=== PATIENT | female | born 1945 | race Caucasian/White ===

== ENCOUNTER → 2018-03-27 | Day surgery (SDC) | payer OTHER ==
[~2018-03-27] MED LIST: DIAZEPAM5 MG PO; FENTANYL CITRATE/PF 100MCG/2 ML INJ ONE; GABAPENTIN300 MG PO; LEVOCETIRIZINE D5 MG PO; LEVOTHYROXINE175 MCG PO; LITHIUM CARBON450 MG PO; LOVENOX60 MG/0.6 SC; LUNESTA2 MG PO; MIDAZOLAM HCL 2 MG/2 ML VIAL ONE; NEXIUM40 MG PO; OR PHACO EYE KIT ONE; PREOP PHACO EYE KIT ONE; SEROQUEL400 MG PO; SINGULAIR10 MG PO; TOPAMAX100 MG PO; TRINTELLIX PO; WARFARIN SODIUM10 MG PO
--- OUTSIDE RECORDS SUMMARY | 2018-03-27 08:54 | XMS REPORT ---
Author Author Juan José Hein [facility] eClinicalWorks Address Unknown Phone Unavailable Care Team Providers Care Human Resources Safety Manager Name Role Phone Juan José Hein CP Unavailable Allergies, Adverse Reactions, Alerts Substance Reaction Event Type penicillin Info Not Available Drug Allergy Keflex Info Not Available Drug Allergy Problems Problem Type Condition Code Onset Dates Condition Status Assessment Shortness of breath R06.02 Active Problem Angina NOS 413.9 Active Assessment Abnormal electrocardiogram R94.31 Active Assessment Encounter for preprocedural cardiovascular examination Z01.810 Active Assessment Fatigue, unspecified type R53.83 Active Problem Encounter for preprocedural cardiovascular examination Z01.810 Active Problem Fatigue, unspecified type R53.83 Active Problem Bradycardia R00.1 Active Problem Benign hypertension 401.1 Active Problem Shortness of breath 786.05 Active Problem Shortness of breath R06.02 Active Problem Abnormal electrocardiogram R94.31 Active Medications Medication Code System Code Instructions Start Date End Date Status Dosage lithium [facility] 98613899602 450 mg orally daily Active 1 tab(s) warfarin [facility] 52104294487 5 mg orally once a day Active 1 tab(s) eszopiclone [facility] 12649637961 1 mg orally once a day (at bedtime) Active 1 tab(s) Tylenol with Codeine #3 [facility] 09642254141 300 mg-30 mg orally bid prn Active 1 tab(s) Trintellix [facility] 61504593729 10 mg orally qhs Active 1 tab(s) gabapentin [facility] 21431028980 600 mg orally qhs Active 1 tab(s) levothyroxine [facility] 86578258468 175 mcg (0.175 mg) orally once a day Active 1 tab(s) quetiapine [facility] 64545662213 400 mg orally qhs Active 1 tab(s) Valium ND 81604087212 5 mg orally prn Active 1 tab(s) levocetirizine ND 20672813648 5 mg orally once a day (in the evening) Active 1 tab(s) Topamax NDC 48178115721 50 mg orally as directed Active 1 tab(s) montelukast [facility] 43146974930 10 mg orally once a day Active 1 tab(s) Nexium [facility] 23549905175 40 mg orally once a day Active 1 cap(s) Vital Signs Date/Time: September 19, 2017 Blood Pressure Diastolic 70 mm Hg Blood Pressure Systolic 114 mm Hg Weight 202.6 lbs BMI 32.70 Index Height 66 in Results No Known Results Summary Purpose eClinicalWorks Submission
--- OUTSIDE RECORDS SUMMARY | 2018-03-27 08:54 | XMS REPORT ---
Author Author Juan José Hein Organization [employer] Address Unknown Phone Unavailable Care Team Providers Care Bail Bond Agent Name Role Phone Juan José Hein CP Unavailable Encounters Encounter Location Date message [facility] July 15, 2014 Test results [facility] August 20, 2014 Problems Problem Type Condition ICD-9 Code Onset Dates Condition Status Problem Benign hypertension 401.1 Active Problem Angina NOS 413.9 Active Problem Shortness of breath 786.05 Active Social History Social History Element Qualifiers Date Reported Tobacco Use: . Smoking Status: former smoker quit 27 yrs ago July 30, 2014 Alcohol: no. July 30, 2014 Summary Purpose eClinicalWorks Submission
--- OUTSIDE RECORDS SUMMARY | 2018-03-27 08:54 | XMS REPORT ---
Author Author Juan José Hein Organization [employer] Address Unknown Phone Unavailable Care Team Providers Care Temporary Office Assistant Name Role Phone Juan José Hein CP Unavailable Allergies, Adverse Reactions, Alerts Substance Reaction Event Type penicillin Info Not Available Drug Allergy Keflex Info Not Available Drug Allergy Encounters Encounter Location Date Unknown [facility] July 30, 2014 message [facility] July 15, 2014 Test results [facility] August 20, 2014 Unknown [facility] July 01, 2014 Problems Problem Type Condition ICD-9 Code Onset Dates Condition Status Assessment Angina NOS 413.9 Active Assessment CVA 436 Active Problem Angina NOS 413.9 Active Assessment Chronic pulmonary embolism 416.2 Active Medications Medication Code System Code Instructions Start Date End Date Status Dosage levothyroxine [facility] 18718 200 mcg (0.2 mg) orally once a day Active 1 tab(s) Ambien [facility] 343 10 mg orally once a day (at bedtime) Active 1 tab(s) primidone [facility] 34725 250 mg orally bid Active 1 tab(s) furosemide [facility] 99260 20 mg orally once a day Active 1 tab(s) Klor-Con 10 [facility] 3625 10 mEq orally qd Active 1 tab(s) Dexilant [facility] 657321 60 mg orally once a day Active 1 cap(s) Depakote [facility] 942 500 mg orally bid Active 1 tab(s) gabapentin [facility] 85242 600 mg orally qhs Active 1 tab(s) warfarin [facility] 31897 12 orally once a day Active 1 tab(s) Social History Social History Element Qualifiers Date Reported Tobacco Use: . Smoking Status: former smoker quit 27 yrs ago July 30, 2014 Alcohol: no. July 30, 2014 Vital Signs Date/Time: July 01, 2014 Blood Pressure Diastolic 72 mm Hg Blood Pressure Systolic 110 mm Hg Weight 217 lbs Height 66 in Summary Purpose eClinicalWorks Submission
--- OUTSIDE RECORDS SUMMARY | 2018-03-27 08:54 | XMS REPORT ---
Author Author Juan José Hein [facility] eClinicalWorks Address Unknown Phone Unavailable Care Team Providers Care 2Nd Pressman Name Role Phone Juan José Hein CP Unavailable Allergies, Adverse Reactions, Alerts Substance Reaction Event Type penicillin Info Not Available Drug Allergy Keflex Info Not Available Drug Allergy Encounters Encounter Location Date Unknown [facility] July 30, 2014 [facility] 2016 [facility] Jan 25, 2016 FYI only: Referral [facility] Jan 26, 2016 Unknown [facility] Jan 26, 2016 message [facility] July 15, 2014 Test results [facility] August 20, 2014 Unknown [facility] July 01, 2014 Problems Problem Type Condition ICD-9 Code Onset Dates Condition Status Assessment Shortness of breath R06.02 Active Assessment Abnormal electrocardiogram R94.31 Active Problem Shortness of breath R06.02 Active Problem Abnormal electrocardiogram R94.31 Active Problem Fatigue, unspecified type R53.83 Active Problem Angina NOS 413.9 Active Assessment Fatigue, unspecified type R53.83 Active Problem Shortness of breath 786.05 Active Problem Benign hypertension 401.1 Active Medications Medication Code System Code Instructions Start Date End Date Status Dosage Protonix [facility] 27434 40 mg orally once a day Active 1 tab(s) gabapentin [facility] 66684 800 mg orally qhs Active 1 tab(s) Folate Unknown 0 400mcg Active Unknown levothyroxine [facility] 53630 150 mcg (0.15 mg) orally once a day Active 1 tab(s) Lunesta [facility] 41303 3 mg orally once a day (at bedtime) Active 1 tab(s) primidone [facility] 82817 250 mg orally bid Active 1 tab(s) Topamax [facility] 6438 25 mg orally 2 times a day Active 1 tab(s) warfarin [facility] 92252 12 orally once a day Active 1 tab(s) Social History Social History Element Qualifiers Date Reported Tobacco Use: . Smoking Status: former smoker quit 27 yrs ago Jan 26, 2016 Alcohol: no. Jan 26, 2016 Vital Signs Date/Time: Jan 26, 2016 Blood Pressure Diastolic 88 mm Hg Blood Pressure Systolic 142 mm Hg Weight 179 lbs Height 66 in Summary Purpose eClinicalWorks Submission
--- OUTSIDE RECORDS SUMMARY | 2018-03-27 08:54 | XMS REPORT ---
Author Author Juan José Hein Organization [employer] Address Unknown Phone Unavailable Care Team Providers Care Terminal Make Up Operator Name Role Phone Juan José Hein CP Unavailable Allergies No Known Allergies Problems Problem Type Condition Code Onset Dates Condition Status Problem Fatigue, unspecified type R53.83 Active Problem Shortness of breath R06.02 Active Problem Encounter for preprocedural cardiovascular examination Z01.810 Active Problem Shortness of breath 786.05 Active Problem Angina NOS 413.9 Active Problem Abnormal electrocardiogram R94.31 Active Problem Benign hypertension 401.1 Active Medications No Known Medications Results No Known Results Summary Purpose eClinicalWorks Submission
--- OUTSIDE RECORDS SUMMARY | 2018-03-27 08:54 | XMS REPORT ---
Author Author Juan José Hein Organization [employer] Address Unknown Phone Unavailable Care Team Providers Care Manager In Home Name Role Phone Juan José Hein CP Unavailable Allergies No Known Allergies Problems Problem Type Condition Code Onset Dates Condition Status Problem Shortness of breath 786.05 Active Problem Angina NOS 413.9 Active Problem Bradycardia R00.1 Active Problem Encounter for preprocedural cardiovascular examination Z01.810 Active Problem Cardiac arrhythmia, unspecified cardiac arrhythmia type I49.9 Active Problem Abnormal electrocardiogram R94.31 Active Problem Benign hypertension 401.1 Active Problem Fatigue, unspecified type R53.83 Active Problem Shortness of breath R06.02 Active Medications No Known Medications Results No Known Results Summary Purpose eClinicalWorks Submission
--- OUTSIDE RECORDS SUMMARY | 2018-03-27 08:54 | XMS REPORT ---
Author Author Juan José Hein Organization [employer] Address Unknown Phone Unavailable Care Team Providers Care Journeyman Tool And Die Maker Name Role Phone Juan José Hein CP [...] Active Problem Shortness of breath 786.05 Active Assessment Shortness of breath 786.05 Active Assessment Benign hypertension 401.1 Active Medications Medication Code System Code Instructions Start Date End Date Status Dosage furosemide [facility] 83763 40 mg orally once a day Active 1 tab(s) warfarin [facility] 29980 12 orally once a day Active 1 tab(s) Dexilant [facility] 675731 60 mg orally once a day Active 1 cap(s) gabapentin [facility] 77217 600 mg orally qhs Active 1 tab(s) Klor-Con 10 [facility] 3625 10 mEq orally qd Active 1 tab(s) Depakote [facility] 942 500 mg orally bid Active 1 tab(s) Ambien [facility] 343 10 mg orally once a day (at bedtime) Active 1 tab(s) Topamax [facility] 6438 25 mg orally 2 times a day Active 1 tab(s) primidone [facility] 09595 250 mg orally bid Active 1 tab(s) levothyroxine [facility] 61165 200 mcg (0.2 mg) orally once a day Active 1 tab(s) Social History Social History Element Qualifiers Date Reported Tobacco Use: . Smoking Status: former smoker quit 27 yrs ago July 30, 2014 Alcohol: no. July 30, 2014 Vital Signs Date/Time: July 30, 2014 Blood Pressure Diastolic 80 mm Hg Blood Pressure Systolic 140 mm Hg Weight 212.6 lbs Height 66 in Summary Purpose eClinicalWorks Submission
--- OUTSIDE RECORDS SUMMARY | 2018-03-27 08:54 | XMS REPORT ---
Author Author Juan José Hein [facility] eClinicalWorks Address Unknown Phone Unavailable Care Team Providers Care Couturiere Name Role Phone Juan José Hein CP Unavailable Encounters Encounter Location Date Unknown [facility] July 30, 2014 [facility] 2016 [facility] Jan 25, 2016 message [facility] July [...]
--- OUTSIDE RECORDS SUMMARY | 2018-03-27 08:54 | XMS REPORT ---
Author Author Juan José Hein Organization [employer] Address Unknown Phone Unavailable Care Team Providers Care Adobe Ball Mixer Name Role Phone Juan José Hein CP [...] ICD-9 Code Onset Dates Condition Status Problem Shortness of breath R06.02 Active Problem Abnormal electrocardiogram R94.31 Active Problem Fatigue, unspecified type R53.83 Active Problem Angina NOS 413.9 Active Problem Shortness of breath 786.05 Active Problem Benign hypertension 401.1 Active Social History Social History Element Qualifiers Date Reported Tobacco Use: . Smoking Status: former smoker quit 27 yrs ago Jan 26, 2016 Alcohol: no. Jan 26, 2016 Summary Purpose eClinicalWorks Submission
--- OUTSIDE RECORDS SUMMARY | 2018-03-27 08:54 | XMS REPORT | Clinical Summary ---
Author Author [facility] Organization [facility] Address Unknown Phone Unavailable Care Team Providers Care Summer Counselor Name Role Phone Kaleb Bocanegra MD PCP Allergies Comments Active Allergy Reactions Severity Noted Date Cephalexin Hives Medium Penicillins Anaphylaxis High Tramadol GI Medium Intolerance Medications End Date Status Medication Sig Dispensed Refills Start Date Active diazePAM (VALIUM) 5 MG diazepam 5 mg 0 tablet tablet nightly Active levocetirizine (XYZAL) 5 levocetirizin 0 MG tablet e 5 mg tablet Take 1 tablet every day by oral route. nightly Active montelukast (SINGULAIR) montelukast 0 10 mg tablet 10 mg tablet Take 1 tablet every day by oral route. nightly Active QUEtiapine (SEROquel) 400 quetiapine 0 MG tablet 400 mg tablet Take 1 tablet twice a day by oral route. nightly Active topiramate (TOPAMAX) 50 topiramate 50 0 MG tablet mg tablet Take 1 tablet in the morning and 100 mg at night Active acetaminophen-codeine Tylenol-Codei 0 (TYLENOL WITH CODEINE #3) ne #3 300 300-30 mg per tablet mg-30 mg tablet Take 1 tablet every 4-6 hours by oral as needed Active warfarin (COUMADIN) 5 MG warfarin 5 mg 0 tablet tablet Active esomeprazole (NexIUM) 40 Take 40 mg by 0 MG capsule mouth daily. 8 Active eszopiclone (LUNESTA) 1 Take 2 mg by 1 MG tablet mouth 8 nightly. Active levothyroxine (SYNTHROID, Take 175 mcg 0 LEVOXYL) 175 mcg tablet by mouth 8 daily. Active lithium (ESKALITH) 450 MG Take 450 mg 1 08/20/201 CR tablet by mouth 8 nightly. Active enoxaparin sodium Inject 90 mg 0 (LOVENOX SUBQ) under the 8 skin 2 (two) times a day. Active vortioxetine (TRINTELLIX) Take 1 tablet 0 10 mg tablet by mouth nightly. Active Problems Not on file Encounters Care Team Description Date Type Specialty Kathie Rosario FNP-C 02/21/2018 Anesthesia General Surgery Event Manny Luu MD RIGHT URETERAL DIALATION, DIAGNOSTIC URETEROSCOPY, EXCHANGE OF RIGHT URETERAL STENT , FLEXIBLE POUCHOSCOPY 02/21/2018 Surgery General Surgery Manny Luu MD 02/21/2018 Hospital General Surgery Encounter Manny Luu MD Preop testing (Primary Dx) 02/16/2018 Pre-Admit Pre-Admission Testing Testing Appointment Kathie Rosario FNP-C 11/23/2017 Anesthesia General Surgery Event Manny Luu MD right ureteroscopy with treatment, retrograde pylogram removal, removal of nephrectomy tube placement, uretheral catheter placement. 11/23/2017 Surgery General Surgery Manny Luu MD 11/23/2017 Hospital General Surgery Encounter Manny Luu MD Preop testing (Primary Dx) 11/17/2017 Pre-Admit Pre-Admission Testing Testing Appointment after 03/26/2017 Family History Medical History Relation Name Comments Parkinsonism Father Sandy Parkinson White Father syndrome Cancer Mother breast Relation Name Status Comments Father Mother Alive suicide Sister Alive Social History Date Tobacco Use Types Packs/Day Years Used Quit: 1994 Former Smoker 15 Smokeless Tobacco: Never Used Alcohol Use Drinks/Week oz/Week Comments No Sex Assigned at Date Recorded Not on file Industry Job Start Date Occupation Not on file Not on file Not on file Travel End Travel History Travel Start No recent travel history available. Last Filed Vital Signs Time Taken Vital Sign Reading 02/21/2018 3:55 PM [facility] Blood Pressure 114/54 02/21/2018 3:55 PM [facility] Pulse 58 02/21/2018 2:30 PM [facility] Temperature 36.4 C (97.6 F) 02/21/2018 3:55 PM [facility] Respiratory Rate 16 02/21/2018 3:55 PM [facility] Oxygen Saturation 97% - Inhaled Oxygen - Concentration 02/21/2018 10:46 AM [facility] Weight 93 kg (205 lb) 02/21/2018 10:46 AM [facility] Height 167.6 cm (5' 6") 02/21/2018 10:46 AM [facility] Body Mass Index 33.09 Plan of Treatment Health Maintenance Due Date Last Done Comments BREAST CANCER SCREENING 1996 COLON CANCER SCREENING 1996 SHINGLES VACCINES (1 of 1996 2) PNEUMOCOCCAL 11/26/2011 POLYSACCHARIDE VACCINE AGE 65 AND OVER PNEUMOCOCCAL-13 11/26/2011 INFLUENZA VACCINE 10/11/2017 Implants Device Identifier Shelf Expiration Date Model / Serial / Lot Implanted Type Area [facility] 09/18/2020 [id number] / / [id number] Stent Set Ureteral [employer] Surgical N/A: Abdomen, COOK 7fr X 30cm - [id number] Stents Middle UROLOGICAL Implanted: Qty: 1 on 11/23/2017 Quadrant/Non Specific 11/18/2019 [id number] / / [id number] Stent Nphrtl Prcuflx 10fr 22cm Nctd Surgical Right: Ureter, BSC - [id number] Stents Ruby PERIPHERAL Implanted: Qty: 1 on 02/21/2018 by Manny Tapia MD ON VASCULAR MERLENE Device Identifier Shelf Expiration Date Model / Serial / Lot Explanted Type Area [facility] 07/26/2020 [id number] / / [id number] 2.4 Fr X 115cm, 1.5cm Basket, Retrieval N/A: N/A [employer] Nitinol Stone Extractor, Materials 4-Prox/16-Distal Multi-Wire, Tipless Implanted: 11/23/2017 (Quantity not on file) Explanted: Qty: 1 on 11/23/2017 10/09/2020 [id number] / / [id number] Stent Set Ureteral [employer] Surgical N/A: Abdomen, COOK 6fr X 26cm - [id number] Stents Middle UROLOGICAL Implanted: 11/23/2017 (Quantity not Quadrant/Non on file) Specific Explanted: Qty: 1 on 11/23/2017 05/27/2018 [id number] / / [id number] Stent Uretl Divrsn Cook Pie Lt 7.2fr Urological N/A: N/A COOK 90cm Margy - [id number] Implants UROLOGICAL Implanted: 11/23/2017 (Quantity not or Sets on file) Explanted: Qty: 1 on 11/23/2017 06/18/2018 [id number] / / [id number] Stent Frankie Damon Cook Pie Rt 7.2fr Urological N/A: N/A COOK 90cm Margy - [id number] Implants UROLOGICAL Implanted: 02/21/2018 (Quantity not or Sets on file) Explanted: Qty: 1 on 02/21/2018 Procedures Comments Procedure Name Priority Date/Time Associated Diagnosis OR FL < 1 HOUR Routine 02/21/2018 1:32 PM [facility] WA AN ELECTIVE Routine 02/21/2018 SUPRAGLOTTIC AIRWAY 12:52 PM [facility] Procedure Note - Errol Malave CRNA - 02/21/2018 12:52 PM [facility] ANESTHESIA INTUBATION Date/Time: 02/21/2018 12:47 PM Performed by: Errol Malave CRNA Authorized by: Aleksander Gage MD Location: OR Urgency: Elective Difficult Airway: No Preoxygena marilyn with 100% O2: Yes C-spine Precaution s Maintained Throughout : Yes Mask Ventilatio n: Not attempted Final Airway Type: Supraglott ic airway Final LMA: I-Gel LMA Size: 4 Number of Attempts at Approach: 1 ESTIMATED GFR Routine 02/16/2018 2:55 PM [facility] COMPREHENSIVE METABOLIC Routine 02/16/2018 Preop testing PANEL 2:55 PM [facility] CBC HEMOGRAM Routine 02/16/2018 Preop testing 2:55 PM [facility] ECG 12-LEAD Routine 11/23/2017 2:07 PM CDT ECG 12-LEAD Routine 11/23/2017 2:06 PM CDT ECG 12-LEAD Routine 11/23/2017 1:49 PM CDT OR FL < 1 HOUR Routine 11/23/2017 1:28 PM CDT WA AN ELECTIVE Routine 11/23/2017 SUPRAGLOTTIC AIRWAY 12:17 PM CDT Procedure Note - Jd Reilly CRNA - 11/23/2017 12:17 PM CDT Airway Performed by: JD REILLY Authorized by: NOEMI ASHRAF Location: OR Urgency: Elective Difficult Airway: No Performed by: resident/C JANET/AA Preoxygena marilyn with 100% O2: Yes C-spine Precaution s Maintained Throughout : Yes Mask Ventilatio n: Easy mask Final Airway Type: Supraglott ic airway Final LMA: I-Gel LMA Size: 4 Number of Attempts at Approach: 1 SMEAR REVIEW Routine 11/17/2017 2:00 PM CDT ZZESTIMATED GFR Routine 11/17/2017 2:00 PM CDT COMPREHENSIVE METABOLIC Routine 11/17/2017 Preop testing PANEL 2:00 PM CDT CBC HEMOGRAM Routine 11/17/2017 Preop testing 2:00 PM CDT ECG 12-LEAD Routine 11/17/2017 Preop testing 1:50 PM CDT PROTHROMBIN TIME WITH INR Routine 11/17/2017 Preop testing 1:29 PM CDT PARTIAL THROMBOPLASTIN Routine 11/17/2017 Preop testing TIME (PTT) 1:29 PM CDT after 03/26/2017 Results * OR FL < 1 Hour (02/21/2018 1:32 PM [facility]) Only the most recent of 2 results within the time period is included. Narrative Performed At EXAMINATION:OR FL 1 HOUR [facility] C-arm fluoroscopy was requested in OR. FT-1.0 MIN; 4.10 mGy IMPRESSION: Separate operative report will be issued by the physician performing the procedure. [id number] Procedure Note Hm Interface, Radiology Results Incoming - 02/21/2018 2:47 PM [facility] EXAMINATION: OR FL 1 HOUR C-arm fluoroscopy was requested in OR. FT-1.0 MIN; 4.10 mGy IMPRESSION: Separate operative report will be issued by the physician performing the procedure. [id number] Performing Organization Address City/State/Zipcode Phone Number [facility] [address] [place] [address] * Estimated GFR (02/16/2018 2:55 PM [facility]) Estimated GFR 64 mL/min/1.73 m2 [facility]: [facility] CatergoryUnitsInte rpretation G1 >=90 Normal or high G2 60-89Mildly decreased [id number] Mildly to moderately decreased [id number] Moderately to severely decreased G4 15-29Severely decreased G5 <15Kidney failure The eGFR was calculated using the Chronic Kidney Disease Epidemiology Collaboration (CKD-EPI) equation. Interpretation is based on recommendations of the National Kidney Foundation-Kidney Disease Outcomes Quality Initiative (NKF-KDOQI) published in 2014. Specimen Plasma specimen Performing Organization Address City/State/Zipcode Phone Number [facility] DEPARTMENT [phone] [place] [address] PATHOLOGY AND GENOMIC MEDICINE [address] * CBC hemogram (02/16/2018 2:55 PM [facility]) Only the most recent of 2 results within the time period is included. WBC 8.27 4.50 - 11.00 k/uL [facility] RBC 4.27 4.20 - 5.50 m/uL [facility] HGB 12.3 12.0 - 16.0 g/dL [facility] HCT 38.9 37.0 - 47.0 % [facility] MCV 91.1 82.0 - 100.0 fL [facility] MCH 28.8 27.0 - 34.0 pg [facility] MCHC 31.6 31.0 - 37.0 g/dL [facility] RDW - SD 44.7 37.0 - 55.0 fL [facility] MPV 11.0 8.8 - 13.2 fL [facility] Platelet count 257 150 - 400 k/uL [facility] Specimen Blood Performing Organization Address City/[facility]/Zipcode Phone Number [facility] DEPARTMENT [phone] [place] [address]. [place] [address] PATHOLOGY AND GENOMIC MEDICINE [address] * Comprehensive metabolic panel (02/16/2018 2:55 PM [facility]) Only the most recent of 2 results within the time period is included. Sodium 141 135 - 148 mEq/L [facility] Potassium 4.5 3.5 - 5.0 mEq/L [facility] Chloride 108 99 - 109 mEq/L [facility] CO2 21 (L) 24 - 31 mEq/L [facility] Anion gap 12@ANIO 7 - 15 mEq/L [facility] BUN 22 8 - 24 mg/dL [facility] Creatinine 0.90 0.50 - 0.90 mg/dL [facility] Glucose 101 (H) 65 - 99 mg/dL [facility] Calcium 9.3 8.6 - 10.6 mg/dL [facility] Protein 7.0 6.3 - 8.2 g/dL [facility] Albumin 3.6 3.5 - 5.0 g/dL [facility] A/G ratio 1.1 0.7 - 3.8 [facility] Alkaline phosphatase 128 (H) 30 - 115 U/L [facility] AST 17 15 - 46 U/L [facility] ALT 10 10 - 55 U/L [facility] Total bilirubin <0.3 0.2 - 1.2 mg/dL [facility] Specimen Plasma specimen Performing Organization Address City/[facility] Phone Number [facility] [place] [place] [address] [place] [address] PATHOLOGY AND GENOMIC MEDICINE [facility] [address] [place] [address] HOSPITAL * ECG 12 lead (11/23/2017 2:07 PM CDT) Only the most recent of 4 results within the time period is included. Ventricular rate 60 [facility] Atrial rate 60 [facility] WA interval 224 [facility] QRSD interval 88 [facility] QT interval 420 [facility] QTC interval 420 [facility] P axis 1 61 [facility] QRS axis 1 -17 [facility] T wave axis 40 [facility] EKG impression Sinus rhythm with 1st degree [facility] MUSE AV block-Otherwise normal ECG-In automated comparison with ECG of 23-NOV-2017 14:06,-No significant change was found- Performing Organization Address City/[facility] Cent[facility]ode Phone Number [facility] [address] [place] [address] * Smear review (11/17/2017 2:00 PM CDT) Smear review Scan Not Req [facility] DEPARTMENT OF PATHOLOGY AND Copyright Agent MEDICINE Performing Organization Address [facility] Cent[facility]ode Phone Number [facility] [place] [place] [id number] [place] [phone] PATHOLOGY AND Copyright Agent MEDICINE * Estimated GFR (11/17/2017 2:00 PM CDT) GFR Non Af Amer 62 mL/min/1.73 m2 [facility] DEPARTMENT OF PATHOLOGY AND Copyright Agent MEDICINE GFR Af Amer 75 mL/min/1.73 m2 [facility] DEPARTMENT OF Comment: PATHOLOGY AND Chronic kidney disease: <60 GENOMIC MEDICINE mL/min/1.73m2 Kidney failure: <15 mL/min/1.73m2 The estimated GFR is calculated from the IDMS-traceable Modification of Diet in Renal Disease Equation. The accuracy of the calculation is poor when the creatinine is normal. Calculated values >90 mL/min/1.73m2 are not reported. This equation has not been validated in children (<18 years), women, the elderly (>70 years), or ethnic groups other than Caucasians and Americans. Specimen Plasma specimen Performing Organization Address [facility] Phone Number [facility] [place] [address] [address] [place] [phone] PATHOLOGY AND Copyright Agent MEDICINE * Partial thromboplastin time, activated (11/17/2017 1:29 PM CDT) PTT 34.3 23.0 - 36.0 sec [facility] DEPARTMENT OF Comment: PATHOLOGY AND PTT therapeutic range for Copyright Agent [facility] unfractionated heparin is 61.0-112.0 seconds which corresponds to Anti-Xa 0.3-0.7 U/ml. Specimen Blood Performing Organization Address [facility] Cent[facility]ode Phone Number [facility] [place] [address] [address] [place] [phone] PATHOLOGY AND Copyright Agent [facility] * Prothrombin time with INR (11/17/2017 1:29 PM CDT) Prothrombin time 12.3 12.0 - 15.0 sec [facility] DEPARTMENT OF PATHOLOGY AND Copyright Agent MEDICINE INR 0.9 [facility] DEPARTMENT OF Comment: PATHOLOGY AND The International Normalized GENOMIC MEDICINE Ratio (INR) is a therapeutic monitoring tool for patients who are stable on oral anticoagulant therapy. An INR of 2.0-3.0 is suggested for deep vein thrombosis/pulmonary embolism. Specimen Blood Performing Organization Address [facility] Centercode Phone Number [facility] [place] [place] [address] [address] [place] [phone] PATHOLOGY AND GENOMIC MEDICINE after 03/26/2017 Insurance Payer Benefit Subscriber ID Type Phone Address Plan / Group [employer] xxxxxxxxx [employer] Guarantor Name Account Relation to Date of Phone Billing Address Type Patient JUSTINE EPPERSON Personal/F Self 1945 [id number] (Home) [address] [place] [address] Advance Directives Patient has advance care planning documents on file. For more information, david terry contact: Ashish Garcia [address] [place] [address]
--- OUTSIDE RECORDS SUMMARY | 2018-03-27 08:54 | XMS REPORT ---
Author Author Juan José Hein [facility] eClinicalWorks Address Unknown Phone Unavailable Care Team Providers Care Signal Maintainer Helper Name Role Phone Juan José Hein CP Unavailable Allergies, Adverse Reactions, Alerts Substance Reaction Event Type penicillin Info Not Available Drug Allergy Keflex Info Not Available Drug Allergy Problems Problem Type Condition Code Onset Dates Condition Status Problem Angina NOS 413.9 Active Problem Benign hypertension 401.1 Active Problem Shortness of breath 786.05 Active Assessment SVT (supraventricular tachycardia) I47.1 Active Assessment Abnormal electrocardiogram R94.31 Active Problem Cardiac arrhythmia, unspecified cardiac arrhythmia type I49.9 Active Problem Bradycardia R00.1 Active Problem SVT (supraventricular tachycardia) I47.1 Active Problem Shortness of breath R06.02 Active Problem Abnormal electrocardiogram R94.31 Active Problem Encounter for preprocedural cardiovascular examination Z01.810 Active Problem Fatigue, unspecified type R53.83 Active Medications Medication Code System Code Instructions Start Date End Date Status Dosage gabapentin [facility] 57819751220 600 mg orally qhs Active 1 tab(s) Tylenol with Codeine #3 [facility] 48250324829 300 mg-30 mg orally bid prn Active 1 tab(s) Trintellix [facility] 76508955525 10 mg orally qhs Active 1 tab(s) warfarin [facility] 94762963384 5 mg orally once a day Active 1 tab(s) levothyroxine [facility] 54048532012 175 mcg (0.175 mg) orally once a day Active 1 tab(s) Nexium [facility] 82127652069 40 mg orally once a day Active 1 cap(s) Valium [facility] 81170187401 5 mg orally prn Active 1 tab(s) quetiapine ND 93634542679 400 mg orally qhs Active 1 tab(s) eszopiclone ND 00048833467 1 mg orally once a day (at bedtime) Active 1 tab(s) lithium [facility] 04282532074 450 mg orally daily Active 1 tab(s) levocetirizine [facility] 27368025935 5 mg orally once a day (in the evening) Active 1 tab(s) Topamax [facility] 67652877907 50 mg orally as directed Active 1 tab(s) montelukast [facility] 17970264722 10 mg orally once a day Active 1 tab(s) Vital Signs Date/Time: Nov 27, 2017 Blood Pressure Diastolic 84 mm Hg Blood Pressure Systolic 138 mm Hg Weight 205.0 lbs BMI 33.08 Index Height 66 in Results No Known Results Summary Purpose eClinicalWorks Submission
--- OUTSIDE RECORDS SUMMARY | 2018-03-27 08:54 | XMS REPORT | Continuity of Care Document ---
Author Author [facility] Interface Address Unknown Phone Unavailable Problems Problem Status Onset Date Classification Date Reported Comments Source Shortness of breath Active Problem 12/21/2017 [facility] Angina NOS Active Problem 12/21/2017 [facility] Bradycardia Active Problem 12/21/2017 [facility] Encounter for preprocedural cardiovascular examination Active Problem 12/21/2017 [facility] Cardiac arrhythmia, unspecified cardiac arrhythmia type Active Problem 12/21/2017 [facility] Abnormal electrocardiogram Active Diagnosis 12/21/2017 [facility] Benign hypertension Active Problem 12/21/2017 [facility] Fatigue, unspecified type Active Problem 12/21/2017 [facility] Shortness of breath Active Problem 12/21/2017 [facility] SVT Active Diagnosis 12/21/2017 [facility] CVA Active Diagnosis 10/28/2014 [facility] Chronic pulmonary embolism Active Diagnosis 10/28/2014 [facility] Medications Medication Details Route Status Patient Instructions Ordering Provider Order Date Source gabapentin 1 tab(s) orally Active 600 mg orally qhs [facility] Tylenol with Codeine #3 1 tab(s) orally Active 300 mg-30 mg orally bid prn [facility] Trintellix 1 tab(s) orally Active 10 mg orally qhs Hein [facility] warfarin 1 tab(s) orally Active 5 mg orally once a day [facility] levothyroxine 1 tab(s) orally Active 175 mcg (0.175 mg) orally once a day [facility] Nexium 1 cap(s) orally Active 40 mg orally once a day [facility] Valium 1 tab(s) orally Active 5 mg orally prn [facility] quetiapine 1 tab(s) orally Active 400 mg orally qhs [facility] eszopiclone 1 tab(s) orally Active 1 mg orally once a day (at bedtime) [facility] lithium 1 tab(s) orally Active 450 mg orally daily [facility] levocetirizine 1 tab(s) orally Active 5 mg orally once a day (in the evening) [facility] Topamax 1 tab(s) orally Active 50 mg orally as directed [facility] montelukast 1 tab(s) orally Active 10 mg orally once a day [facility] furosemide 1 tab(s) orally Active 40 mg orally once a day [facility] warfarin 1 tab(s) orally Active 12 orally once a day [facility] Dexilant 1 cap(s) orally Active 60 mg orally once a day [facility] gabapentin 1 tab(s) orally Active 800 mg orally qhs [facility] Klor-Con 10 1 tab(s) orally Active 10 mEq orally qd [facility] Depakote 1 tab(s) orally Active 500 mg orally bid [facility] Ambien 1 tab(s) orally Active 10 mg orally once a day (at bedtime) [facility] Topamax 1 tab(s) orally Active 25 mg orally 2 times a day [facility] primidone 1 tab(s) orally Active 250 mg orally bid [facility] levothyroxine 1 tab(s) orally Active 150 mcg (0.15 mg) orally once a day [facility] Protonix 1 tab(s) orally Active 40 mg orally once a day [facility] Folate Unknown NA Active 400mcg [facility] Lunesta 1 tab(s) orally Active 3 mg orally once a day (at bedtime) [facility] Allergies, Adverse Reactions, Alerts Substance Category Reaction Severity Reaction type Status Date Reported Comments Source penicillin Adverse Reaction Info Not Available Adverse Reaction Active 11/27/2017 [facility] Keflex Adverse Reaction Info Not Available Adverse Reaction Active 11/27/2017 [facility] Immunizations Immunization Date Given Site Status Last Updated Comments Source Results Order Name Results Value Reference Range Date Interpretation Comments Source Vital Signs Vital Sign Value Date Comments Source Diastolic (mm Hg) 84 11/27/2017 [facility] Systolic (mm Hg) 138 11/27/2017 [facility] Weight 205.0 11/27/2017 [facility] Height 66 11/27/2017 [facility] Diastolic (mm Hg) 70 09/19/2017 [facility] Systolic (mm Hg) 114 09/19/2017 [facility] Weight 202.6 09/19/2017 [facility] Height 66 09/19/2017 [facility] Diastolic (mm Hg) 88 01/26/2016 [facility] Systolic (mm Hg) 142 01/26/2016 [facility] Weight 179 01/26/2016 [facility] Height 66 01/26/2016 [facility] Diastolic (mm Hg) 80 07/30/2014 [facility] Systolic (mm Hg) 140 07/30/2014 [facility] Weight 212.6 07/30/2014 [facility] Height 66 07/30/2014 [facility] Diastolic (mm Hg) 72 07/01/2014 [facility] Systolic (mm Hg) 110 07/01/2014 [facility] Weight 217 07/01/2014 [facility] Height 66 07/01/2014 [facility] Encounters Location Location Details Encounter Type Encounter Number Reason For Visit Attending Provider ADM Date DC Date Status Source [facility] Unknown [id number] 07/01/2014 07/01/2014 [facility] Unknown [id number] 07/01/2014 07/01/2014 [facility] Unknown [id number] 07/01/2014 07/01/2014 [facility] Unknown [id number] 07/01/2014 07/01/2014 [facility] Unknown [id number] 07/01/2014 07/01/2014 [facility] message [id number] 07/15/2014 07/15/2014 [facility] message [id number] 07/15/2014 07/15/2014 [facility] message [id number] 07/15/2014 07/15/2014 [facility] message [id number] 07/15/2014 07/15/2014 [facility] message [id number] 07/15/2014 07/15/2014 [facility] message [id number] 07/15/2014 07/15/2014 [facility] Unknown [id number] 07/30/2014 07/30/2014 [facility] Unknown [id number] 07/30/2014 07/30/2014 [facility] Unknown [id number] 07/30/2014 07/30/2014 [facility] Unknown [id number] 07/30/2014 07/30/2014 [facility] Unknown [id number] 07/30/2014 07/30/2014 [facility] Test results [id number] 08/20/2014 08/20/2014 [facility] Test results [id number] 08/20/2014 08/20/2014 [facility] Test results [id number] 08/20/2014 08/20/2014 [facility] Test results [id number] 08/20/2014 08/20/2014 [facility] Test results [id number] 08/20/2014 08/20/2014 [facility] Test results [id number] 08/20/2014 08/20/2014 [facility] 2015 [id number] 01/25/2016 01/25/2016 [facility] 2015 [id number] 01/25/2016 01/25/2016 [facility] 2015 [id number] 01/25/2016 01/25/2016 [facility] FYI only: Referral [id number] 01/26/2016 01/26/2016 [facility] FYI only: Referral [id number] 01/26/2016 01/26/2016 [facility] Unknown [id number] 01/26/2016 01/26/2016 [facility] Procedures Procedure Code Date Perfomer Comments Source
[2018-03-27 10:24] LABS: INR 0.96; PROTHROMBIN TIME 13.7 seconds (11.9-14.5)
[2018-03-27 10:25] LABS: PARTIAL THROMBOPLASTIN TIME 35.5 seconds (23.8-35.5)
[2018-03-27 12:13] VITALS: BP 118/50
== END | disposition home or self-care (01) ==
LOC: OR 08:49
PROVIDERS: ATTEND Ophthalmology
DX: H25.11 Age-related nuclear cataract, right eye (principal); E03.9 Hypothyroidism, unspecified; K21.9 Gastro-esophageal reflux disease without esophagitis; G25.81 Restless legs syndrome; F31.9 Bipolar disorder, unspecified; F20.9 Schizophrenia, unspecified; Z79.01 Long term (current) use of anticoagulants; Z88.1 Allergy status to other antibiotic agents; Z88.0 Allergy status to penicillin
CPT/HCPCS: 36415; 85610; 85730; J2250; V2632

== ENCOUNTER → 2018-04-17 | Day surgery (SDC) | payer MEDICARE ==
[~2018-04-17] MED LIST changes: +LIDOCAINE HCL 2% LOCAL INJ 5 ML SDV VIAL INJ ONE; +PROPOFOL IV EMULSION 10 MG/ML 20 ML VIAL ONE
--- OUTSIDE RECORDS SUMMARY | 2018-04-17 12:29 | XMS REPORT | Continuity of Care Document ---
Author Author [facility] Interface Address Unknown Phone Unavailable Problems Problem Status Onset Date Classification Date Reported Comments Source Fatigue, unspecified type Active Problem 12/21/2017 [facility] Shortness of breath Active Problem 12/21/2017 [facility] Encounter for preprocedural cardiovascular examination Active Problem 12/21/2017 [facility] Shortness of breath Active Problem 12/21/2017 [facility] Angina NOS Active Problem 12/21/2017 [facility] Abnormal electrocardiogram Active Diagnosis 12/21/2017 [facility] Benign hypertension Active Problem 12/21/2017 [facility] Bradycardia Active Problem 12/21/2017 [facility] Cardiac arrhythmia, unspecified cardiac arrhythmia type Active Problem 12/21/2017 [facility] SVT Active Diagnosis 12/21/2017 [facility] CVA Active Diagnosis 10/28/2014 [facility] Chronic pulmonary embolism Active Diagnosis 10/28/2014 [facility] Medications Medication Details Route Status Patient Instructions Ordering Provider Order Date Source gabapentin 1 tab(s) orally Active 600 mg orally qhs [facility] Tylenol with Codeine #3 1 tab(s) orally Active 300 mg-30 mg orally bid prn [facility] Trintellix 1 tab(s) orally Active 10 mg orally qhs Hein [facility] warfarin 1 tab(s) orally Active 5 mg orally once a day [facility] levothyroxine 1 tab(s) orally Active 175 mcg (0.175 mg) orally once a day [facility] Nexium 1 cap(s) orally Active 40 mg orally once a day [facility] Valium 1 tab(s) orally Active 5 mg orally prn [facility] quetiapine 1 tab(s) orally Active 400 mg orally qhs [facility] eszopiclone 1 tab(s) orally Active 1 mg orally once a day (at bedtime) [facility] lithium 1 tab(s) orally Active 450 mg orally daily [facility] levocetirizine 1 tab(s) orally Active 5 mg orally once a day (in the evening) [facility] Topamax 1 tab(s) orally Active 50 mg orally as directed [facility] montelukast 1 tab(s) orally Active 10 mg orally once a day [facility] levothyroxine 1 tab(s) orally Active 150 mcg (0.15 mg) orally once a day [facility] Ambien 1 tab(s) orally Active 10 mg orally once a day (at bedtime) [facility] primidone 1 tab(s) orally Active 250 mg orally bid [facility] furosemide 1 tab(s) orally Active 40 mg orally once a day [facility] Klor-Con 10 1 tab(s) orally Active 10 mEq orally qd [facility] Dexilant 1 cap(s) orally Active 60 mg orally once a day [facility] Depakote 1 tab(s) orally Active 500 mg orally bid [facility] gabapentin 1 tab(s) orally Active 800 mg orally qhs [facility] warfarin 1 tab(s) orally Active 12 orally once a day [facility] Protonix 1 tab(s) orally Active 40 mg orally once a day [facility] Folate Unknown NA Active 400mcg [facility] Lunesta 1 tab(s) orally Active 3 mg orally once a day (at bedtime) [facility] Topamax 1 tab(s) orally Active 25 mg orally 2 times a day [facility] Allergies, Adverse Reactions, Alerts Substance Category Reaction Severity Reaction type Status Date Reported Comments Source penicillin Adverse Reaction Info Not Available Adverse Reaction Active 11/27/2017 [facility] Keflex Adverse Reaction Info Not Available Adverse Reaction Active 11/27/2017 [facility] Immunizations Immunization Date Given Site [...] Status Source [facility] Unknown [id number] 07/01/2014 07/01/2014 [facility] Unknown [id number] 07/01/2014 07/01/2014 [facility] Unknown [id number] 07/01/2014 07/01/2014 [facility] Unknown [id number] 07/01/2014 07/01/2014 [facility] Unknown [id number] 07/01/2014 07/01/2014 [facility] message [id number] 07/15/2014 07/15/2014 [facility] message [id number] 07/15/2014 07/15/2014 [facility] message [id number] 07/15/2014 07/15/2014 [facility] message [id number] 07/15/2014 07/15/2014 [facility] message [id number] 07/15/2014 07/15/2014 [facility] message [id number] 07/15/2014 07/15/2014 [facility] Unknown [id number] 07/30/2014 07/30/2014 [facility] Unknown [id number] 07/30/2014 07/30/2014 [facility] Unknown [id number] 07/30/2014 07/30/2014 [facility] Unknown [id number] 07/30/2014 07/30/2014 [facility] Unknown [id number] 07/30/2014 07/30/2014 [facility] Test results [id number] 08/20/2014 08/20/2014 [facility] Test results [id number] 08/20/2014 08/20/2014 [facility] Test results [id number] 08/20/2014 08/20/2014 [facility] Test results [id number] 08/20/2014 08/20/2014 [facility] Test results [id number] 08/20/2014 08/20/2014 [facility] Test results [id number] 08/20/2014 08/20/2014 [facility] 2015 [id number] 01/25/2016 01/25/2016 [facility] 2015 [id number] 01/25/2016 01/25/2016 [facility] 2015 [id number] 01/25/2016 01/25/2016 [facility] FYI only: Referral [id number] 01/26/2016 01/26/2016 [facility] FYI only: Referral [id number] 01/26/2016 01/26/2016 [facility] Unknown [id number] 01/26/2016 01/26/2016 [facility] Procedures Procedure Code Date Perfomer Comments Source
--- OUTSIDE RECORDS SUMMARY | 2018-04-17 12:29 | XMS REPORT | Clinical Summary ---
Author Author [facility] Organization [facility] Address Unknown Phone Unavailable Care Team Providers Care Waste Recycler Name Role Phone Kaleb Bocanegra MD PCP [...] 11/17/2017 Pre-Admit Pre-Admission Testing Testing Appointment after 04/16/2017 Family History Medical History Relation Name Comments [...] Taken Vital Sign Reading 02/21/2018 3:55 PM TRAY SETTER Blood Pressure 114/54 02/21/2018 3:55 PM TRAY SETTER Pulse 58 02/21/2018 2:30 PM TRAY SETTER Temperature 36.4 C (97.6 F) 02/21/2018 3:55 PM TRAY SETTER Respiratory Rate 16 02/21/2018 3:55 PM TRAY SETTER Oxygen Saturation 97% - Inhaled Oxygen - Concentration 02/21/2018 10:46 AM TRAY SETTER Weight 93 kg (205 lb) 02/21/2018 10:46 AM TRAY SETTER Height 167.6 cm (5' 6") 02/21/2018 10:46 AM TRAY SETTER Body Mass Index 33.09 Plan of Treatment Health Maintenance Due Date Last Done Comments BREAST CANCER SCREENING 1996 COLON CANCER SCREENING 1996 SHINGLES VACCINES (1 of 1996 2) PNEUMOCOCCAL 11/26/2011 POLYSACCHARIDE VACCINE AGE 65 AND OVER PNEUMOCOCCAL-13 11/26/2011 INFLUENZA VACCINE 10/11/2017 Implants Device Identifier Shelf Expiration Date Model / Serial / Lot Implanted Type [facility] 09/18/2020 [id number] / / [id number] Stent Set Ureteral [employer] Surgical N/A: Abdomen, COOK 7fr X 30cm - [id number] Stents Middle UROLOGICAL Implanted: Qty: 1 on 11/23/2017 Quadrant/Non Specific 11/18/2019 [id number] / / [id number] Stent Nphrtl Prcuflx 10fr 22cm Nctd Surgical Right: Ureter, BSC - [id number] Stents Afognak PERIPHERAL Implanted: Qty: 1 on 02/21/2018 by Manny Tapia MD ON VASCULAR MERLENE Device Identifier Shelf Expiration Date Model / Serial / Lot Explanted Type [facility] 07/26/2020 [id number] / / [id number] 2.4 Fr X 115cm, 1.5cm Basket, Retrieval N/A: N/A [employer] Nitinol Stone Extractor, Materials 4-Prox/16-Distal Multi-Wire, Tipless Implanted: 11/23/2017 (Quantity not on file) Explanted: Qty: 1 on 11/23/2017 10/09/2020 [id number] / / [id number] Stent Set Ureteral [employer] Surgical N/A: Abdomen, COOK 6fr X 26cm - [id number] Stents Middle UROLOGICAL Implanted: 11/23/2017 (Quantity not Quadrant/Non on file) Specific Explanted: Qty: 1 on 11/23/2017 05/27/2018 [id number] / / [id number] Stent Uretl Divrsn Sanitary Landfill Supervisor Lt 7.2fr Urological N/A: N/A COOK 90cm Margy - [id number] Implants UROLOGICAL Implanted: 11/23/2017 (Quantity not or Sets on file) Explanted: Qty: 1 on 11/23/2017 06/18/2018 [id number] / / [id number] Stent Frankie Damon Sanitary Landfill Supervisor Rt 7.2fr Urological N/A: N/A COOK 90cm Margy - [id number] Implants UROLOGICAL Implanted: 02/21/2018 (Quantity not or Sets on file) Explanted: Qty: 1 on 02/21/2018 Procedures Comments Procedure Name Priority Date/Time Associated Diagnosis OR FL < 1 HOUR Routine 02/21/2018 1:32 PM TRAY SETTER MO AN ELECTIVE Routine 02/21/2018 SUPRAGLOTTIC AIRWAY 12:52 PM TRAY SETTER Procedure Note - Errol Malave CRNA - 02/21/2018 12:52 PM TRAY SETTER ANESTHESIA INTUBATION Date/Time: 02/21/2018 12:47 PM Performed [...] 1 ESTIMATED GFR Routine 02/16/2018 2:55 PM TRAY SETTER COMPREHENSIVE METABOLIC Routine 02/16/2018 Preop testing PANEL 2:55 PM TRAY SETTER CBC HEMOGRAM Routine 02/16/2018 Preop testing 2:55 PM TRAY SETTER ECG 12-LEAD Routine 11/23/2017 2:07 PM CDT ECG 12-LEAD Routine 11/23/2017 2:06 PM CDT ECG 12-LEAD Routine 11/23/2017 1:49 PM CDT OR FL < 1 HOUR Routine 11/23/2017 1:28 PM CDT MO AN ELECTIVE Routine 11/23/2017 SUPRAGLOTTIC AIRWAY 12:17 [...] testing TIME (PTT) 1:29 PM CDT after 04/16/2017 Results * OR FL < 1 Hour (02/21/2018 1:32 PM TRAY SETTER) Only the most recent of 2 results within the time period is included. Narrative Performed At EXAMINATION:OR FL 1 HOUR [facility] C-arm fluoroscopy was requested in OR. FT-1.0 MIN; 4.10 mGy IMPRESSION: Separate operative report will be issued by the physician performing the procedure. [id number] Procedure Note Hm Interface, Radiology Results Incoming - 02/21/2018 2:47 PM TRAY SETTER EXAMINATION: [place] 1 HOUR C-arm fluoroscopy was requested in OR. FT-1.0 MIN; 4.10 mGy IMPRESSION: Separate operative report will be issued by the physician performing the procedure. [id number] Performing Organization Address City/State/Zipcode Phone Number [facility] [address] [place] [address] * Estimated GFR (02/16/2018 2:55 PM TRAY SETTER) Estimated GFR 64 mL/min/1.73 m2 [facility]: [facility] CatergoryUnitsInte rpretation G1 >=90 Normal or high G2 60-89Mildly decreased F8o88-58 Mildly to moderately decreased K4c76-45 Moderately to severely decreased G4 15-29Severely decreased G5 <15Kidney failure The eGFR was calculated using the Chronic Kidney Disease Epidemiology Collaboration (CKD-EPI) equation. Interpretation is based on recommendations of the National Kidney Foundation-Kidney Disease Outcomes Quality Initiative (NKF-KDOQI) published in 2014. Specimen Plasma specimen Performing Organization Address City/State/Zipcode Phone Number [facility] DEPARTMENT [id number] [place] [address] PATHOLOGY AND GENOMIC MEDICINE [address] * CBC hemogram (02/16/2018 2:55 PM TRAY SETTER) Only the most recent of 2 results within the time period is included. WBC 8.27 4.50 - 11.00 k/uL [facility] RBC 4.27 4.20 - 5.50 m/uL [facility] HGB 12.3 12.0 - 16.0 g/dL [facility] HCT 38.9 37.0 - 47.0 % [facility] MCV 91.1 82.0 - 100.0 fL [facility] MCH 28.8 27.0 - 34.0 pg [facility] MCHC 31.6 31.0 - 37.0 g/dL [facility] RDW - SD 44.7 37.0 - 55.0 fL [facility] MPV 11.0 8.8 - 13.2 fL [facility] Platelet count 257 150 - 400 k/uL [facility] Specimen Blood Performing Organization Address City/[facility]/Zipcode Phone Number [facility] DEPARTMENT [id number] [place] [address]. [place] [address] PATHOLOGY AND GENOMIC MEDICINE [address] * Comprehensive metabolic panel (02/16/2018 2:55 PM TRAY SETTER) Only the most recent of 2 results within the time period is included. Sodium 141 135 - 148 mEq/L [facility] Potassium 4.5 3.5 - 5.0 mEq/L [facility] Chloride 108 99 - 109 mEq/L [facility] CO2 21 (L) 24 - 31 mEq/L [facility] Anion gap 12@ANIO 7 - 15 mEq/L [facility] BUN 22 8 - 24 mg/dL [facility] Creatinine 0.90 0.50 - 0.90 mg/dL [facility] Glucose 101 (H) 65 - 99 mg/dL [facility] Calcium 9.3 8.6 - 10.6 mg/dL [facility] Protein 7.0 6.3 - 8.2 g/dL [facility] Albumin 3.6 3.5 - 5.0 g/dL [facility] A/G ratio 1.1 0.7 - 3.8 [facility] Alkaline phosphatase 128 (H) 30 - 115 U/L [facility] AST 17 15 - 46 U/L [facility] ALT 10 10 - 55 U/L [facility] Total bilirubin <0.3 0.2 - 1.2 mg/dL [facility] Specimen Plasma specimen Performing Organization Address City/[facility] Cent[facility] Phone Number [facility] [place] [address] [place] [address] PATHOLOGY AND GENOMIC MEDICINE [facility] [address] [place] [address] HOSPITAL * ECG 12 lead (11/23/2017 2:07 PM CDT) Only the most recent of 4 results within the time period is included. Ventricular rate 60 [facility]USE Atrial rate 60 [facility] MO interval 224 [facility] QRSD interval 88 [...] significant change was found- Performing Organization Address City/[facility] Cent[facility]ode Phone Number [facility] [address] [place] [address] * Smear review (11/17/2017 2:00 PM CDT) Smear review Scan Not Req [facility] DEPARTMENT OF PATHOLOGY AND [facility] MEDICINE Performing Organization Address [facility] Centercode Phone Number [facility] [place] [place] [address] [place] [phone] PATHOLOGY AND [facility]ICINE * Estimated GFR (11/17/2017 2:00 PM CDT) GFR Non Af Amer 62 mL/min/1.73 m2 [facility] DEPARTMENT OF PATHOLOGY AND [place] MEDICINE GFR Af Amer 75 mL/min/1.73 m2 [facility] DEPARTMENT OF Comment: PATHOLOGY AND Chronic kidney [...] Americans. Specimen Plasma specimen Performing Organization Address [facility] Phone Number [facility] [place] [address] [address] [place] [phone] PATHOLOGY AND [facility] MEDICINE * Partial thromboplastin time, activated (11/17/2017 1:29 PM CDT) PTT 34.3 23.0 - 36.0 sec [facility] DEPARTMENT OF Comment: PATHOLOGY AND PTT therapeutic range for [facility] unfractionated heparin is 61.0-112.0 seconds which corresponds to Anti-Xa 0.3-0.7 U/ml. Specimen Blood Performing Organization Address [facility] Centercode Phone Number [facility] [place] [address] [address] [place] [phone] PATHOLOGY AND [facility] * Prothrombin time with INR (11/17/2017 1:29 PM CDT) Prothrombin time 12.3 12.0 - 15.0 sec [facility] DEPARTMENT OF PATHOLOGY AND [facility]IC[facility] INR 0.9 [facility] DEPARTMENT OF Comment: PATHOLOGY AND The International Normalized GENOMIC MEDICINE Ratio (INR) is a therapeutic monitoring tool for patients who are stable on oral anticoagulant therapy. An INR of 2.0-3.0 is suggested for deep vein thrombosis/pulmonary embolism. Specimen Blood Performing Organization Address [facility] Centercode Phone Number [facility] [place] [address] [address] [place] [phone] PATHOLOGY AND GENOMIC MEDICINE after 04/16/2017 Insurance Payer Benefit Subscriber ID Type Phone Address Plan / Group [employer] xxxxxxxxx [facility] Guarantor Name Account Relation to Date of Phone Billing Address Type Patient JUSTINE EPPERSON Personal/F Self 1945 [id number] [place] [address] Advance Directives Patient has advance care planning documents on file. For more information, david terry contact: Ashish Garcia [address] [place] [address]
[2018-04-17 16:05] VITALS: BP 140/55
== END | disposition home or self-care (01) ==
LOC: OR 12:27
PROVIDERS: ATTEND Ophthalmology
DX: H25.12 Age-related nuclear cataract, left eye (principal); E03.9 Hypothyroidism, unspecified; G25.81 Restless legs syndrome; K21.9 Gastro-esophageal reflux disease without esophagitis; F20.9 Schizophrenia, unspecified; J45.909 Unspecified asthma, uncomplicated; Z79.01 Long term (current) use of anticoagulants; Z88.1 Allergy status to other antibiotic agents; Z88.0 Allergy status to penicillin
CPT/HCPCS: 66984; J2001; J2250; J2704